=== PATIENT | male | born 1975 | race Caucasian/White ===

== ENCOUNTER → 2025-01-08 | Outpatient (CLI) | payer OTHER, SELFPAY ==
--- NOTE | 2025-01-08 07:09 | CT_ITS ---
PROCEDURE: CTA CHEST W/WO CONTRAST ([id number]), 01/08/2025 REASON FOR EXAM: DILATED AORTIC ANEURYSM TECHNIQUE: CTA chest was performed with IV contrast. Multiplanar reformats and an MIP reconstruction were generated. CONTRAST: Isovue 370 VOLUME: 100mL RADIATION DOSE SUMMARY: CTDlvol: 11.40+ 15.95 mGy DLP: 635.44 mGycm One or more dose reduction techniques were used (e.g., Automated exposure control, adjustment of the mA and/or kV according to patient size, use of iterative reconstruction technique). COMPARISON: None FINDINGS: Heart/pericardium: Question LEFT ventricular hypertrophy.. Aorta: Unremarkable. High-normal size of the ascending aorta up to 3.9 x 3.8 cm orthogonal to the long axis. Minimal fusiform ectasia of the proximal descending aorta to 3.1 x 3.1 cm. Aorta at the level of the diaphragmatic hiatus measures 2.6 x 2.5 cm. Pulmonary arteries: Mild dilatation of the central pulmonary arteries may indicate pulmonary arterial hypertension. Exam not optimized for detection of pulmonary emboli, however did under definitely identified Lymph nodes: Unremarkable. Lungs/pleura: 2 mm RIGHT apical micronodule (series 2, image 41).. Airways: Unremarkable. Chest wall: Unremarkable. Upper abdomen: Apparent hepatic hypoattenuation could be technical and related to the phase of contrast. Tiny LEFT renal hypodensity too small to characterize, likely cysts. Very mild focal distal most esophageal wall thickening. Musculoskeletal: Mild spondylosis.. CT/CTA Chest W/WO Contrast IMPRESSION: 1. Minimal fusiform ectasia of the descending thoracic aorta as detailed. High normal caliber of the ascending aorta. No rachana thoracic aortic aneurysm. 2. Very mild focal distal most esophageal wall thickening could reflect minimal esophagitis. Recommend clinical follow-up to exclude a small underlying lesion in this area. 3. 2 mm RIGHT upper lobe micronodule, statistically benign and requiring no spe cific follow-up in a low risk patient. Otherwise, recommend follow-up CT chest in one year per the Fleischner society recommendat ions for pulmonary nodule follow-up, presuming no history of malignancy or known immunosuppression. 4. Questionable hepatic steatosis although the appearance may be technical. Co rrelate for clinical and laboratory evidence of chronic liver disease. 5. Additional description as above. Reading Location: [id number]
--- NOTE | 2025-01-08 14:53 | STRESSREP ---
Stress Test Report Pharmacologic myocardial perfusion stress test. 49-year-old man with a history of abnormal EKG Resting EKG demonstrates sinus rhythm with increased voltage and T wave inversions in leads II, III and aVF V4 through V6 with a rate of 65 bpm. Resting blood pressure is 162/90 mmHg. 0.4 mg of regadenoson was infused per usual protocol followed by rapid intravenous saline flush injection. Continuous EKG monitoring was performed. The maximum heart rate was 85 bpm which was 50% of max impacted heart rate the maximum workload was 1 metabolic equivalent. At rest there were no ST or T wave changes noted to suggest ischemia and at peak infusion nonspecific ST changes were noted which did not meet the criteria for ischemia. No clinical angina is noted. The final blood pressure was 132/82 mmHg. Myocardial perfusion protocol. 10.9 mCi of technetium 99m sestamibi was injected at rest. 0.4 mg of regadenoson was infused per usual protocol. At peak infusion 31.8 mCi of technetium 99m sestamibi was injected stress images were obtained stress and rest images were reconstructed and compared in the short axis vertical long and horizontal long axis. Gated images were also obtained. Perfusion SPECT analysis: Review of the stress images demonstrate normal uptake of tracer noted in all areas of the myocardium. The resting images similar demonstrated normal uptake of tracer noted in all areas of the myocardium. No areas of reversibility are noted to suggest ischemia and no previous infarct is noted. Gated SPECT analysis: The gated ejection fraction is 58%. Conclusion: Normal pharmacologic myocardial perfusion stress test. Preserved ejection fraction.
== END | disposition home or self-care (01) ==
LOC: CVS 07:02
PROVIDERS: PCP Registered Nurse General Practice; Referring Provider Registered Nurse General Practice; Visit Provider Registered Nurse General Practice
DX: I77.810 Thoracic aortic ectasia (principal); R07.9 Chest pain, unspecified
CPT/HCPCS: 71275; 78452; 93017; A9500; Q9967; A4216; J2785